=== PATIENT | female | born 1955 | race Caucasian/White ===

== ENCOUNTER 2021-03-03 06:55 | Observation (INO) | payer MEDICARE ==
[2021-02-27 12:30] LABS: BASOPHILS % 0.5 % (0.0-1.0); EOSINOPHILS # (AUTO) 0.2 (0.0-0.4); EOSINOPHILS % 1.8 % (0.0-6.0); HEMATOCRIT 43.1 % (34.2-44.1); HEMOGLOBIN 14.3 g/dL (12.0-16.0); LYMPHOCYTES # (AUTO) 3.4 (1.0-3.2); LYMPHOCYTES % 38.5 % (18.0-39.1); MEAN CORPUSCULAR HEMOGLOBIN 31.2 pg (28-32); MEAN CORPUSCULAR HGB CONC 33.2 g/dL (31-35); MEAN CORPUSCULAR VOLUME 93.9 fL (81-99); MONOCYTES # (AUTO) 0.5 (0.2-0.8); MONOCYTES % 5.7 % (4.4-11.3); NEUTROPHILS # (AUTO) 4.7 (2.1-6.9); NEUTROPHILS % 53.3 % (38.7-80.0); PLATELET COUNT 144 x10e3/uL (140-360); RED BLOOD COUNT 4.59 x10e6/uL (3.6-5.1); RED CELL DISTRIBUTION WIDTH 12.8 % (11.7-14.4)
[2021-02-27 12:48] LABS: ANION GAP 12.2 mmol/L (8-16); BLOOD UREA NITROGEN 9 mg/dL (7-26); BUN/CREATININE RATIO 10 (6-25); CALCIUM 9.1 mg/dL (8.4-10.2); CARBON DIOXIDE 24 mmol/L (22-29); CHLORIDE 105 mmol/L (98-107); CREATININE, SERUM 0.93 mg/dL (0.57-1.11); EST GLOMERULAR FILTRATION RATE > 60 ML/MIN (60-); GLUCOSE 232 mg/dL (74-118); POTASSIUM 4.2 mmol/L (3.5-5.1); SODIUM 137 mmol/L (136-145)
[~2021-03-03] VITALS: Ht 160 cm; Wt 69.4 kg
[~2021-03-03 06:55] MED LIST: ASPIRIN81 MG PO; ATORVASTATIN CA20 MG PO; EZETIMIBE10 MG PO; GLIPIZIDE5 MG PO; IBUPROFEN400 MG PO; ISOSORBIDE MONO30 MG PO; LISINOPRIL10 MG PO; METFORMIN; METFORMIN HCL500 MG PO
[2021-03-03] MEDS ORDERED: SODIUM CHLORIDE 0.9% 50ML 100 ML ONE (07:53)
[2021-03-03] MEDS ORDERED: BUPIVACAINE HCL 0.5% INJ 30 ML VIAL INJ ONE ×2 (08:25→10:15)
[2021-03-03] MEDS ORDERED: SUGAMMADEX SODIUM 200 MG/2 ML VIAL IV ONE (09:52)
[2021-03-03] MEDS ORDERED: ACETAMINOPHEN 1000 MG/100 ML 100 ML IV ONE (09:52)
[2021-03-03] MEDS ORDERED: MIDAZOLAM HCL 2 MG/2 ML VIAL ONE (10:55)
[2021-03-03] MEDS ORDERED: FENTANYL CITRATE/PF 100MCG/2 ML INJ ONE ×2 (10:55→11:14)
[2021-03-03] MEDS ORDERED: MORPHINE SULFATE 1 MG/ML 30ML PCA ONE (11:23)
[2021-03-03] MEDS ORDERED: DEXTROSE 50% SYRINGE 50 ML IV PRN (12:30)
[2021-03-03] MEDS ORDERED: MORPHINE SULFATE 1 MG/ML 30ML PCA IV PRN (12:45)
[2021-03-03] MEDS ORDERED: IBUPROFEN 400 MG TAB PO PRN (13:00)
[2021-03-03] MEDS: INSULIN REGULAR, HUMAN 100 UNIT/1 ML 3ML VIAL SQ SCH ×2 (13:00→17:44)
[2021-03-03] MEDS ORDERED: GLYCOPYRROLATE INJ 0.2 MG/ML VIAL ONE (13:07)
[2021-03-03] MEDS ORDERED: ONDANSETRON HCL INJ 2MG/ML 2ML 2 MG/ML VIAL ONE (13:07)
[2021-03-03] MEDS ORDERED: LIDOCAINE HCL 2% LOCAL INJ 5 ML SDV VIAL INJ ONE (13:07)
[2021-03-03] MEDS ORDERED: DESFLURANE 240 ML BTL INH ONE (13:07)
[2021-03-03] MEDS ORDERED: PROPOFOL IV EMULSION 10 MG/ML 20 ML VIAL ONE (13:07)
[2021-03-03] MEDS ORDERED: NEOSTIGMINE 1 MG/ML 10ML VIAL ONE (13:07)
[2021-03-03] MEDS ORDERED: ROCURONIUM BROMIDE 10 MG/ML 5ML VIAL IV ONE (13:07)
[2021-03-03] MEDS ORDERED: POVIDONE IODINE 0.05% 0.05 % ML PO ONE (13:07)
[2021-03-03 14:37] VITALS: BP 161/57
[2021-03-03] MEDS: ASPIRIN 81 MG CHEW TAB PO SCH (15:26)
[2021-03-03] MEDS: SODIUM CHLORIDE 0.9% 1000ML 1,000 ML IV SCH (15:26)
[2021-03-03] MEDS: Cefazolin 2 GM in SODIUM CHLORIDE 0.9% 50ML 50 ML IV SCH (15:26)
[2021-03-03] MEDS ORDERED: ACETAMINOPHEN 325 MG TAB PO PRN (15:30)
[2021-03-03 16:12] VITALS: BP 124/64
[2021-03-03] MEDS: GLIPIZIDE 5 MG TAB PO SCH (17:49)
[2021-03-03 19:47] VITALS: BP 140/71
[2021-03-03 20:00] VITALS: BP 140/71
[2021-03-03] MEDS ORDERED: METFORMIN HCL 500 MG TAB CR PO SCH (21:00)
[2021-03-03] MEDS ORDERED: LISINOPRIL 20 MG TAB PO SCH (21:00)
[2021-03-03] MEDS: ISOSORBIDE MONONITRATE 30 MG TAB CR PO SCH (21:21)
[2021-03-03] MEDS: ATORVASTATIN 40 MG TAB PO SCH (21:21)
[2021-03-04] VITALS: BP 132/89
[2021-03-04] MEDS: Cefazolin 2 GM in SODIUM CHLORIDE 0.9% 50ML 50 ML IV SCH (00:30)
[2021-03-04] MEDS: SODIUM CHLORIDE 0.9% 1000ML 1,000 ML IV SCH ×2 (00:30→08:05)
[2021-03-04 04:00] VITALS: BP 124/66
[2021-03-04] MEDS: INSULIN REGULAR, HUMAN 100 UNIT/1 ML 3ML VIAL SQ SCH ×2 (06:00)
[2021-03-04 08:00] VITALS: BP 133/69
[2021-03-04] MEDS: ASPIRIN 81 MG CHEW TAB PO SCH (08:05)
[2021-03-04] MEDS: GLIPIZIDE 5 MG TAB PO SCH (08:05)
[2021-03-04 08:25] VITALS: BP 133/69
[2021-03-04] MEDS ORDERED: EZETIMIBE 10 MG TAB PO SCH (09:00)
[2021-03-04] MEDS ORDERED: HYDROCODONE/APAP 7.5MG-325MG 1 EA TAB PO PRN (09:15)
[2021-03-04 10:08] LABS: EOSINOPHILS # (AUTO) 0.1 (0.0-0.4); EOSINOPHILS % 0.8 % (0.0-6.0); HEMATOCRIT 41.2 % (34.2-44.1); HEMOGLOBIN 13.3 g/dL (12.0-16.0); LYMPHOCYTES # (AUTO) 1.2 (1.0-3.2); LYMPHOCYTES % 11.8 % (18.0-39.1); MEAN CORPUSCULAR HEMOGLOBIN 30.9 pg (28-32); MEAN CORPUSCULAR HGB CONC 32.3 g/dL (31-35); MEAN CORPUSCULAR VOLUME 95.8 fL (81-99); MONOCYTES # (AUTO) 0.3 (0.2-0.8); MONOCYTES % 2.9 % (4.4-11.3); NEUTROPHILS # (AUTO) 8.3 (2.1-6.9); NEUTROPHILS % 84.1 % (38.7-80.0); PLATELET COUNT 135 x10e3/uL (140-360); RED CELL DISTRIBUTION WIDTH 13.1 % (11.7-14.4)
[2021-03-04 10:17] LABS: ANION GAP 13.2 mmol/L (8-16); CREATININE, SERUM 0.88 mg/dL (0.57-1.11); POTASSIUM 4.2 mmol/L (3.5-5.1)
[2021-03-04] MEDS ORDERED: KETOROLAC TROME10 MG PO (11:09)
[2021-03-04] MEDS ORDERED: INSULIN REGULAR, HUMAN 100 UNIT/1 ML 3ML VIAL SQ SCH (11:30)
[2021-03-04] MEDS: ATORVASTATIN 40 MG TAB PO SCH (11:41)
[2021-03-04] MEDS: ISOSORBIDE MONONITRATE 30 MG TAB CR PO SCH (11:41)
== END 2021-03-04 12:18 | disposition home or self-care (01) ==
LOC: OR 06:55 → IMCU 12:54 → INTOOBSV 12:54
PROVIDERS: ADMIT Surgery; ATTEND Surgery
DX: K43.2 Incisional hernia without obstruction or gangrene (principal); Z01.810 Encounter for preprocedural cardiovascular examination; Z01.812 Encounter for preprocedural laboratory examination; Z01.818 Encounter for other preprocedural examination; Z20.822 Contact with and (suspected) exposure to COVID-19; J44.9 Chronic obstructive pulmonary disease, unspecified; I25.10 Atherosclerotic heart disease of native coronary artery without angina pectoris; Z95.1 Presence of aortocoronary bypass graft; I10 Essential (primary) hypertension; E11.9 Type 2 diabetes mellitus without complications; I73.9 Peripheral vascular disease, unspecified; Z88.5 Allergy status to narcotic agent; Z88.2 Allergy status to sulfonamides; K58.9 Irritable bowel syndrome, unspecified; Z86.73 Personal history of transient ischemic attack (TIA), and cerebral infarction without residual deficits; Z72.0 Tobacco use; I25.2 Old myocardial infarction; Z79.84 Long term (current) use of oral hypoglycemic drugs
CPT/HCPCS: 36415 ×3; 49560; 49568; 71046; 80048 ×2; 82948 ×2; 85025 ×2; 93005; G0378 ×2; J0131; J0690 ×2; J2001; J2270; J2405; J2704; J2710; J3010; J7030; U0002; J2250

== ENCOUNTER 2021-03-13 13:01 | Inpatient (IN) | payer SELFPAY ==
[~2021-03-13] VITALS: Ht 160 cm; Wt 69.4 kg
[~2021-03-13 13:01] MED LIST changes: +KETOROLAC TROME10 MG PO
[2021-03-13] MEDS ORDERED: SODIUM CHLORIDE 0.9% 1000ML 1,000 ML IV STA (13:09)
[2021-03-13 13:16] LABS: BASOPHILS # (AUTO) 0.1 (0.0-0.1); BASOPHILS % 0.9 % (0.0-1.0); EOSINOPHILS # (AUTO) 0.7 (0.0-0.4); EOSINOPHILS % 7.2 % (0.0-6.0); HEMATOCRIT 41.3 % (34.2-44.1); HEMOGLOBIN 13.8 g/dL (12.0-16.0); LYMPHOCYTES # (AUTO) 3.4 (1.0-3.2); LYMPHOCYTES % 34.5 % (18.0-39.1); MEAN CORPUSCULAR HEMOGLOBIN 31.4 pg (28-32); MEAN CORPUSCULAR HGB CONC 33.4 g/dL (31-35); MEAN CORPUSCULAR VOLUME 93.9 fL (81-99); MONOCYTES # (AUTO) 0.5 (0.2-0.8); MONOCYTES % 4.5 % (4.4-11.3); NEUTROPHILS # (AUTO) 5.3 (2.1-6.9); NEUTROPHILS % 52.7 % (38.7-80.0); PLATELET COUNT 207 x10e3/uL (140-360); RED CELL DISTRIBUTION WIDTH 12.8 % (11.7-14.4)
[2021-03-13] MEDS ORDERED: MORPHINE SULFATE INJ 4 MG/ML INJ 1ML IV STA (13:29)
[2021-03-13] MEDS ORDERED: MORPHINE SULFATE INJ 4 MG/ML INJ 1ML ONE (13:33)
[2021-03-13] MEDS ORDERED: BUPIVACAINE HCL 0.5% INJ 30 ML VIAL INJ ONE (13:34)
[2021-03-13 13:46] LABS: ALBUMIN 3.9 g/dL (3.5-5.0); ALBUMIN/GLOBULIN RATIO 1.1 (0.8-2.0); ANION GAP 13.9 mmol/L (8-16); CALCIUM 9.2 mg/dL (8.4-10.2); CREATININE, SERUM 0.86 mg/dL (0.57-1.11); POTASSIUM 3.9 mmol/L (3.5-5.1)
[2021-03-13] MEDS ORDERED: SUGAMMADEX SODIUM 200 MG/2 ML VIAL IV ONE (14:26)
[2021-03-13] MEDS ORDERED: DEXTROSE 50% SYRINGE 50 ML IV PRN (14:30)
[2021-03-13] MEDS ORDERED: KETOROLAC TROMETHAMINE 10 MG TAB PO PRN (14:30)
[2021-03-13] MEDS ORDERED: MORPHINE SULFATE INJ 4 MG/ML INJ 1ML IV PRN (14:30)
[2021-03-13] MEDS ORDERED: ONDANSETRON HCL INJ 2MG/ML 2ML 2 MG/ML VIAL IV PRN (14:30)
[2021-03-13] MEDS ORDERED: IBUPROFEN 400 MG TAB PO PRN (14:30)
[2021-03-13] MEDS ORDERED: FENTANYL CITRATE/PF 100MCG/2 ML INJ ONE (15:32)
[2021-03-13] MEDS ORDERED: MIDAZOLAM HCL 2 MG/2 ML VIAL ONE (15:32)
[2021-03-13 15:35] VITALS: BP 160/78
[2021-03-13 16:00] VITALS: BP 160/78
[2021-03-13] MEDS: INSULIN LISPRO 100 UNIT/1 ML 3ML VIAL SQ SCH ×2 (16:30→20:41)
[2021-03-13] MEDS: DEXTROSE 5%/0.45% SOD CHL 1,000 ML IV SCH (16:57)
[2021-03-13] MEDS: GLIPIZIDE 5 MG TAB PO SCH (16:58)
[2021-03-13] MEDS: TRAMADOL HCL 50 MG TAB PO PRN (19:40)
[2021-03-13] MEDS: ATORVASTATIN 40 MG TAB PO SCH (20:41)
[2021-03-13] MEDS: METFORMIN HCL 500 MG TAB PO SCH (20:41)
[2021-03-13] MEDS: LISINOPRIL 20 MG TAB PO SCH (20:41)
[2021-03-13] MEDS: ISOSORBIDE MONONITRATE 30 MG TAB CR PO SCH (20:41)
[2021-03-13 20:46] VITALS: BP 155/62
[2021-03-13 20:54] VITALS: BP 155/62
[2021-03-14] VITALS (8 sets, daily range): BP systolic 109–167; BP diastolic 63–80
[2021-03-14] MEDS: DEXTROSE 5%/0.45% SOD CHL 1,000 ML IV SCH (03:20)
[2021-03-14 05:13] LABS: CALCIUM 8.1 mg/dL (8.4-10.2); CREATININE, SERUM 0.77 mg/dL (0.57-1.11)
[2021-03-14] MEDS: INSULIN LISPRO 100 UNIT/1 ML 3ML VIAL SQ SCH ×4 (07:30→21:00)
[2021-03-14] MEDS: GLIPIZIDE 5 MG TAB PO SCH (07:30)
[2021-03-14] MEDS ORDERED: ASPIRIN 81 MG CHEW TAB PO SCH (09:00)
[2021-03-14] MEDS ORDERED: EZETIMIBE 10 MG TAB PO SCH ×2 (09:00→21:00)
[2021-03-14] MEDS ORDERED: BENZONATATE 100 MG CAP PO PRN (09:30)
[2021-03-14] MEDS: CLINDAMYCIN HCL 150 MG CAP PO SCH ×3 (10:00→21:14)
[2021-03-14] MEDS: TRAMADOL HCL 50 MG TAB PO PRN (14:02)
[2021-03-14] MEDS: BENZONATATE 100 MG CAP PO SCH ×2 (17:00→21:00)
[2021-03-14] MEDS: ISOSORBIDE MONONITRATE 30 MG TAB CR PO SCH (21:00)
[2021-03-14] MEDS: ASPIRIN 81 MG CHEW TAB PO SCH (21:00)
[2021-03-14] MEDS: ATORVASTATIN 40 MG TAB PO SCH (21:00)
[2021-03-14] MEDS: METFORMIN HCL 500 MG TAB PO SCH (21:00)
[2021-03-14] MEDS: LISINOPRIL 20 MG TAB PO SCH (21:00)
[2021-03-15] VITALS (8 sets, daily range): BP systolic 119–186; BP diastolic 63–82
[2021-03-15] MEDS: CLINDAMYCIN HCL 150 MG CAP PO SCH ×5 (04:00→22:37)
[2021-03-15] MEDS: TRAMADOL HCL 50 MG TAB PO PRN (07:21)
[2021-03-15] MEDS: BENZONATATE 100 MG CAP PO SCH ×3 (07:21→20:21)
[2021-03-15] MEDS: INSULIN LISPRO 100 UNIT/1 ML 3ML VIAL SQ SCH ×4 (07:30→20:24)
[2021-03-15] MEDS ORDERED: HYDRALAZINE HCL 25 MG TAB PO PRN (09:15)
[2021-03-15] MEDS: LISINOPRIL 20 MG TAB PO SCH (20:21)
[2021-03-15] MEDS: ATORVASTATIN 40 MG TAB PO SCH (20:21)
[2021-03-15] MEDS: ISOSORBIDE MONONITRATE 30 MG TAB CR PO SCH (20:21)
[2021-03-15] MEDS: METFORMIN HCL 500 MG TAB PO SCH (20:21)
[2021-03-15] MEDS: ASPIRIN 81 MG CHEW TAB PO SCH (20:21)
[2021-03-16] MEDS: TRAMADOL HCL 50 MG TAB PO PRN (01:28)
[2021-03-16] MEDS: CLINDAMYCIN HCL 150 MG CAP PO SCH (03:58)
[2021-03-16 04:28] VITALS: BP 146/77
[2021-03-16] MEDS ORDERED: CLEOCIN HCL300 MG PO (07:09)
[2021-03-16] MEDS ORDERED: TESSALON PERLE100 MG PO (07:09)
[2021-03-16 07:27] VITALS: BP 132/59
[2021-03-16 07:30] VITALS: BP 132/59
[2021-03-16] MEDS: INSULIN LISPRO 100 UNIT/1 ML 3ML VIAL SQ SCH (07:30)
[2021-03-16] MEDS ORDERED: ONDANSETRON HCL 4 MG ORAL DISINTEGRATING TAB PO PRN (08:15)
== END 2021-03-16 08:20 | disposition home or self-care (01) | DRG 909 ==
LOC: ER 13:05 → OR 14:00 → PACU V 14:47 → MED/SURG 15:43 → OBSVTOIN 03-15 09:00
PROVIDERS: ADMIT Surgery; ATTEND Surgery
PROC: 0JQ80ZZ Repair Abdomen Subcutaneous Tissue and Fascia, Open Approach (ICD-10-PCS; principal; 2021-03-13 13:50)
DX: T81.32XA Disruption of internal operation (surgical) wound, not elsewhere classified, initial encounter (principal); E11.9 Type 2 diabetes mellitus without complications; I10 Essential (primary) hypertension; Z88.5 Allergy status to narcotic agent; Z88.2 Allergy status to sulfonamides; E78.5 Hyperlipidemia, unspecified
CPT/HCPCS: 36415; 80048; 80053; 82948; 85025; 99284; G0378; J2250; J2270; J3010

== ENCOUNTER 2022-06-09 13:11 | Emergency (ER) | payer MEDICARE ==
[~2022-06-09] VITALS: Ht 312.4 cm; Wt 69.4 kg
[~2022-06-09 13:11] MED LIST changes: +CLEOCIN HCL300 MG PO; +TESSALON PERLE100 MG PO
[2022-06-09 13:34] LABS: BASOPHILS % 0.3 % (0.0-1.0); EOSINOPHILS # (AUTO) 0.1 (0.0-0.4); EOSINOPHILS % 1.6 % (0.0-6.0); HEMATOCRIT 42.6 % (34.2-44.1); HEMOGLOBIN 14.1 g/dL (12.0-16.0); LYMPHOCYTES % 34.3 % (18.0-39.1); MEAN CORPUSCULAR HEMOGLOBIN 31.3 pg (28-32); MEAN CORPUSCULAR HGB CONC 33.1 g/dL (31-35); MEAN CORPUSCULAR VOLUME 94.5 fL (81-99); MONOCYTES # (AUTO) 0.4 (0.2-0.8); MONOCYTES % 4.8 % (4.4-11.3); NEUTROPHILS # (AUTO) 5.1 (2.1-6.9); NEUTROPHILS % 58.9 % (38.7-80.0); PLATELET COUNT 146 x10e3/uL (140-360); RED BLOOD COUNT 4.51 x10e6/uL (3.6-5.1); RED CELL DISTRIBUTION WIDTH 11.9 % (11.7-14.4)
[2022-06-09 13:59] LABS: ALBUMIN 3.9 g/dL (3.5-5.0); ALBUMIN/GLOBULIN RATIO 1.2 (0.8-2.0); ANION GAP 15.1 mmol/L (8-16); CALCIUM 9.7 mg/dL (8.4-10.2); CREATININE, SERUM 0.93 mg/dL (0.57-1.11); POTASSIUM 4.1 mmol/L (3.5-5.1)
[2022-06-09] MEDS ORDERED: DEXAMETHASONE SOD PHOS 10 MG/1 ML VIAL IV ONE (14:45)
[2022-06-09] MEDS ORDERED: ALBUTEROL/IPRATROPIUM 3 ML NEB NEB SCH (15:00)
[2022-06-09] MEDS ORDERED: IOPAMIDOL 370 MG/ML 100 ML INFUS..BTL INJ ONE (15:46)
[2022-06-09] MEDS ORDERED: DECADRON4 M1 PO (16:51)
[2022-06-09 17:17] VITALS: BP 145/62
== END 2022-06-09 17:00 | disposition home or self-care (01) ==
LOC: ER 13:14
DX: R06.02 Shortness of breath (principal); J44.1 Chronic obstructive pulmonary disease with (acute) exacerbation; E11.65 Type 2 diabetes mellitus with hyperglycemia; I10 Essential (primary) hypertension; Z95.1 Presence of aortocoronary bypass graft; Z20.822 Contact with and (suspected) exposure to COVID-19
CPT/HCPCS: 36415; 71045; 71260; 80053; 83880; 84484; 85025; 85379; 93005; 94799; 99284; J1100; Q9967; U0002

== ENCOUNTER 2022-06-11 18:54 | Inpatient (IN) | payer MEDICARE ==
[~2022-06-11] VITALS: Ht 160 cm; Wt 68.0 kg
[~2022-06-11 18:54] MED LIST changes: +DECADRON4 M1 PO
[2022-06-11] MEDS ORDERED: ALBUTEROL SULF 0.083% NEB SOLN 3 ML NEB NEB STA (19:10)
[2022-06-11] MEDS ORDERED: METHYLPREDNISOLONE SOD SUCC 125 MG/2ML VIAL IV ONE (19:15)
[2022-06-11] MEDS ORDERED: IPRATROPIUM BROMIDE 0.02% 2.5 ML NEB NEB ONE (19:15)
[2022-06-11 19:23] LABS: BASOPHILS % 0.1 % (0.0-1.0); HEMATOCRIT 40.9 % (34.2-44.1); HEMOGLOBIN 13.9 g/dL (12.0-16.0); LYMPHOCYTES # (AUTO) 1.2 (1.0-3.2); LYMPHOCYTES % 9.1 % (18.0-39.1); MEAN CORPUSCULAR HEMOGLOBIN 31.7 pg (28-32); MEAN CORPUSCULAR VOLUME 93.4 fL (81-99); MONOCYTES # (AUTO) 0.8 (0.2-0.8); MONOCYTES % 5.6 % (4.4-11.3); NEUTROPHILS # (AUTO) 11.5 (2.1-6.9); NEUTROPHILS % 84.1 % (38.7-80.0); PLATELET COUNT 174 x10e3/uL (140-360); RED BLOOD COUNT 4.38 x10e6/uL (3.6-5.1); RED CELL DISTRIBUTION WIDTH 12.1 % (11.7-14.4)
[2022-06-11] MEDS ORDERED: ACETAMINOPHEN 325 MG TAB PO ONE ×2 (19:30)
[2022-06-11] MEDS ORDERED: SODIUM CHLORIDE 0.9% 1000ML 1,000 ML IV ONE ×2 (19:30→19:45)
[2022-06-11 19:42] LABS: ALBUMIN 3.9 g/dL (3.5-5.0); ANION GAP 18.7 mmol/L (8-16); CREATININE, SERUM 0.94 mg/dL (0.57-1.11); POTASSIUM 3.7 mmol/L (3.5-5.1)
[2022-06-11 19:48] LABS: CREATINE KINASE MB 3.2 ng/mL (0-5.0)
[2022-06-11] MEDS ORDERED: DEXTROSE 50% SYRINGE 50 ML IV PRN (20:45)
[2022-06-11] MEDS ORDERED: SODIUM CHLORIDE FLUSH 10 ML SYR INJ PRN (20:45)
[2022-06-11] MEDS ORDERED: ACETAMINOPHEN 325 MG TAB PO PRN ×2 (20:45→21:15)
[2022-06-11] MEDS ORDERED: ONDANSETRON HCL INJ 2MG/ML 2ML 2 MG/ML VIAL IV PRN (21:15)
[2022-06-11] MEDS: BENZONATATE 100 MG CAP PO PRN (21:45)
[2022-06-11] MEDS: ATORVASTATIN 40 MG TAB PO SCH (21:45)
[2022-06-11] MEDS: ISOSORBIDE MONONITRATE 30 MG TAB CR PO SCH (21:45)
[2022-06-11] MEDS: INSULIN REGULAR, HUMAN 100 UNIT/1 ML SQ SCH (21:51)
[2022-06-11] MEDS ORDERED: IBUPROFEN 600 MG TAB PO STA (21:54)
[2022-06-11] MEDS: HYDROCODONE/APAP 5MG-325MG TAB PO PRN (22:39)
[2022-06-11] MEDS: ALBUTEROL/IPRATROPIUM 3 ML NEB NEB SCH (23:15)
[2022-06-12 02:43] LABS: CREATINE KINASE MB 3.4 ng/mL (0-5.0)
[2022-06-12] MEDS: ALBUTEROL/IPRATROPIUM 3 ML NEB NEB SCH ×6 (03:27→23:15)
[2022-06-12 06:23] LABS: BASOPHILS % 0.1 % (0.0-1.0); HEMATOCRIT 39.6 % (34.2-44.1); HEMOGLOBIN 13.5 g/dL (12.0-16.0); LYMPHOCYTES # (AUTO) 0.8 (1.0-3.2); LYMPHOCYTES % 7.6 % (18.0-39.1); MEAN CORPUSCULAR HEMOGLOBIN 31.8 pg (28-32); MEAN CORPUSCULAR HGB CONC 34.1 g/dL (31-35); MEAN CORPUSCULAR VOLUME 93.4 fL (81-99); MONOCYTES # (AUTO) 0.6 (0.2-0.8); MONOCYTES % 6.3 % (4.4-11.3); NEUTROPHILS # (AUTO) 8.8 (2.1-6.9); NEUTROPHILS % 85.7 % (38.7-80.0); PLATELET COUNT 143 x10e3/uL (140-360); RED BLOOD COUNT 4.24 x10e6/uL (3.6-5.1); RED CELL DISTRIBUTION WIDTH 12.1 % (11.7-14.4)
[2022-06-12] MEDS: METHYLPREDNISOLONE SOD SUCC 40 MG/ML VIAL 1ML IV SCH ×3 (06:32→17:31)
[2022-06-12] MEDS: HYDROCODONE/APAP 5MG-325MG TAB PO PRN ×2 (06:40→18:40)
[2022-06-12 06:43] LABS: ALBUMIN 3.4 g/dL (3.5-5.0); ALBUMIN/GLOBULIN RATIO 0.9 (0.8-2.0); ANION GAP 17.2 mmol/L (8-16); CALCIUM 9.6 mg/dL (8.4-10.2); CREATININE, SERUM 0.9 mg/dL (0.57-1.11); POTASSIUM 4.2 mmol/L (3.5-5.1)
[2022-06-12] MEDS: BENZONATATE 100 MG CAP PO PRN ×2 (06:44→18:41)
[2022-06-12] MEDS ORDERED: EUTHYROX50 MCG (07:27)
[2022-06-12] MEDS: INSULIN REGULAR, HUMAN 100 UNIT/1 ML SQ SCH ×4 (08:59→21:00)
[2022-06-12] MEDS: ASPIRIN 81 MG CHEW TAB PO SCH (09:10)
[2022-06-12] MEDS: EZETIMIBE 10 MG TAB PO SCH (09:11)
[2022-06-12] MEDS: GLIPIZIDE 5 MG TAB PO SCH ×2 (09:11→17:31)
[2022-06-12 15:04] VITALS: BP 151/78
[2022-06-12 15:06] LABS: CREATINE KINASE MB 2.7 ng/mL (0-5.0)
[2022-06-12 15:10] VITALS: BP 151/78
[2022-06-12 15:11] VITALS: BP 151/78
[2022-06-12 15:16] VITALS: BP 151/78
[2022-06-12] MEDS: ENOXAPARIN SOD INJ 40 MG/0.4 ML SYR SC SCH (18:33)
[2022-06-12 20:00] VITALS: BP 123/81
[2022-06-12] MEDS ORDERED: SODIUM CHLORIDE 0.9% 250ML 250 ML ONE (20:25)
[2022-06-12 21:00] VITALS: BP 123/81
[2022-06-12] MEDS: LISINOPRIL 20 MG TAB PO SCH (21:14)
[2022-06-12] MEDS: ISOSORBIDE MONONITRATE 30 MG TAB CR PO SCH (21:14)
[2022-06-12] MEDS: ATORVASTATIN 40 MG TAB PO SCH (21:14)
[2022-06-13] VITALS (11 sets, daily range): BP systolic 102–137; BP diastolic 56–75
[2022-06-13] MEDS: ALBUTEROL/IPRATROPIUM 3 ML NEB NEB SCH ×6 (03:00→23:15)
[2022-06-13 05:19] LABS: BASOPHILS % 0.2 % (0.0-1.0); HEMOGLOBIN 13.3 g/dL (12.0-16.0); LYMPHOCYTES # (AUTO) 1.9 (1.0-3.2); LYMPHOCYTES % 20.1 % (18.0-39.1); MEAN CORPUSCULAR HEMOGLOBIN 31.4 pg (28-32); MEAN CORPUSCULAR HGB CONC 33.3 g/dL (31-35); MEAN CORPUSCULAR VOLUME 94.3 fL (81-99); MONOCYTES # (AUTO) 0.8 (0.2-0.8); NEUTROPHILS # (AUTO) 6.7 (2.1-6.9); NEUTROPHILS % 71.3 % (38.7-80.0); PLATELET COUNT 131 x10e3/uL (140-360); RED BLOOD COUNT 4.24 x10e6/uL (3.6-5.1); RED CELL DISTRIBUTION WIDTH 11.8 % (11.7-14.4)
[2022-06-13 05:39] LABS: ANION GAP 15.9 mmol/L (8-16); CALCIUM 9.5 mg/dL (8.4-10.2); CREATININE, SERUM 0.8 mg/dL (0.57-1.11); POTASSIUM 3.9 mmol/L (3.5-5.1)
[2022-06-13] MEDS: LEVOTHYROXINE SODIUM 50 MCG TAB PO SCH (06:17)
[2022-06-13 06:20] LABS: CREATINE KINASE MB 0.7 ng/mL (0-5.0)
[2022-06-13] MEDS: INSULIN REGULAR, HUMAN 100 UNIT/1 ML SQ SCH ×4 (07:30→21:12)
[2022-06-13] MEDS ORDERED: IBUPROFEN 400 MG TAB PO PRN (08:00)
[2022-06-13] MEDS: METHYLPREDNISOLONE SOD SUCC 40 MG/ML VIAL 1ML IV SCH ×2 (09:08→17:49)
[2022-06-13] MEDS: EZETIMIBE 10 MG TAB PO SCH (09:10)
[2022-06-13] MEDS: ASPIRIN 81 MG CHEW TAB PO SCH (09:10)
[2022-06-13] MEDS: GLIPIZIDE 5 MG TAB PO SCH ×2 (09:10→17:48)
[2022-06-13] MEDS: FLUTICASONE/SALMETEROL 115/21 12 GM AERO IH SCH ×3 (10:32→19:20)
[2022-06-13 11:49] LABS: BAND NEUTROPHILS % (MANUAL) 14 %; LYMPHOCYTES % (MANUAL) 27 % (19-48); METAMYELOCYTES % (MANUAL) 1 % (0-0); MONOCYTES % (MANUAL) 10 % (3.4-9.0); NEUTROPHILS % (MANUAL) 48 % (40-74); NUCLEATED RED BLOOD CELLS 1
[2022-06-13 11:51] LABS: PLATELET ESTIMATE ADEQUATE; PLATELET MORPHOLOGY COMMENT NORMAL
[2022-06-13] MEDS: GUAIFENESIN 600 MG TAB PO SCH (15:01)
[2022-06-13] MEDS: ENOXAPARIN SOD INJ 40 MG/0.4 ML SYR SC SCH (17:50)
[2022-06-13] MEDS: LISINOPRIL 20 MG TAB PO SCH (21:08)
[2022-06-13] MEDS: ISOSORBIDE MONONITRATE 30 MG TAB CR PO SCH (21:08)
[2022-06-13] MEDS: ATORVASTATIN 40 MG TAB PO SCH (21:08)
[2022-06-14] VITALS: BP 117/72
[2022-06-14] MEDS: ALBUTEROL/IPRATROPIUM 3 ML NEB NEB SCH ×4 (03:00→14:25)
[2022-06-14 04:00] VITALS: BP 126/77
[2022-06-14] MEDS: LEVOTHYROXINE SODIUM 50 MCG TAB PO SCH (06:06)
[2022-06-14] MEDS: INSULIN REGULAR, HUMAN 100 UNIT/1 ML SQ SCH ×2 (07:30→11:30)
[2022-06-14] MEDS: GLIPIZIDE 5 MG TAB PO SCH (07:30)
[2022-06-14 08:00] VITALS: BP 141/72
[2022-06-14 08:03] VITALS: BP 141/72
[2022-06-14] MEDS: EZETIMIBE 10 MG TAB PO SCH (09:00)
[2022-06-14] MEDS: GUAIFENESIN 600 MG TAB PO SCH (09:00)
[2022-06-14] MEDS: ASPIRIN 81 MG CHEW TAB PO SCH (09:00)
[2022-06-14] MEDS ORDERED: ONDANSETRON HCL 4 MG ORAL DISINTEGRATING TAB PO PRN ×2 (11:00)
[2022-06-14] MEDS: FLUTICASONE/SALMETEROL 115/21 12 GM AERO IH SCH (11:00)
[2022-06-14] MEDS ORDERED: LEVOFLOXACIN500 MG PO (11:21)
[2022-06-14 11:45] VITALS: BP 131/76
[2022-06-14] MEDS ORDERED: AZITHROMYCIN 250 MG TAB PO SCH (20:00)
== END 2022-06-14 15:24 | disposition home or self-care (01) | DRG 871 ==
LOC: ER 19:14 → ERHOLD 20:38 → MED/SURG2 06-12 14:37
PROVIDERS: ADMIT Internal Medicine; ATTEND Internal Medicine
DX: A41.9 Sepsis, unspecified organism (principal); J18.9 Pneumonia, unspecified organism; J44.0 Chronic obstructive pulmonary disease with (acute) lower respiratory infection; I50.32 Chronic diastolic (congestive) heart failure; M62.82 Rhabdomyolysis; I11.0 Hypertensive heart disease with heart failure; I25.10 Atherosclerotic heart disease of native coronary artery without angina pectoris; Z95.1 Presence of aortocoronary bypass graft; Z88.5 Allergy status to narcotic agent; Z88.2 Allergy status to sulfonamides; Z95.5 Presence of coronary angioplasty implant and graft; Z20.822 Contact with and (suspected) exposure to COVID-19
CPT/HCPCS: 36415; 71045; 80048; 80053; 80061; 82550; 82553; 82948; 83036; 83605; 83880; 84443; 84484; 85025; 87040; 93005; 94664; 94760; 94799; 96372; 99284; J0456; J0692; J0696; J1650; J1817; J2920; J2930; J7030; J7050